=== PATIENT | female | born 1990 | race American Indian/Alaskan Native ===

== ENCOUNTER 2023-11-07 17:22 | Inpatient (IN) | payer MEDICAID ==
[2023-11-07] MEDS: Ondansetron 4 MG Tab.DIS PO ONE (18:55)
[2023-11-07] MEDS: LORazepam 0.5 MG Tab PO ONE (18:55)
[2023-11-07 19:06] LABS: BASOPHILS ABSOLUTE AUTO 0.08 K/uL (0.00-0.10); BASOPHILS PERCENT AUTO 0.8 % (0.1-1.3); HEMATOCRIT 35.1 % (34.3-46.0); HEMOGLOBIN 12.1 g/dL (11.2-15.5); IMMATURE GRAN PERCENT AUTO 0.2 % (0.0-0.7); LYMPHOCYTES ABSOLUTE AUTO 3.25 K/uL (0.8-3.3); LYMPHOCYTES PERCENT AUTO 32.1 % (11.4-47.7); MEAN CORPUSCULAR HEMOGLOBIN 30.9 pg (31.6-35.5); MEAN CORPUSCULAR HGB CONC 34.5 g/dL (31.6-35.5); MEAN CORPUSCULAR VOLUME 89.5 fL (81.4-99.0); MONOCYTES PERCENT AUTO 7.9 % (3.3-12.6); NEUTROPHILS ABSOLUTE AUTO 5.86 K/uL (1.0-7.6); PLATELET COUNT,PLT 313 K/uL (130-375); RED BLOOD CELL COUNT 3.92 M/uL (3.77-5.24); WHITE BLOOD CELL COUNT,WBC 10.1 K/uL (3.2-11.0)
[2023-11-07 19:13] LABS: IMMATURE GRAN ABSOLUTE AUTO 0.02 K/uL (0.00-0.23)
[2023-11-07 19:35] LABS: A/G RATIO 0.9 (1.2-2.2); ALANINE AMINOTRANSFERASE,ALT 21 U/L (12-78); ALBUMIN 2.6 g/dL (3.4-5.0); ALKALINE PHOSPHATASE 53 U/L (46-116); ASPARTATE AMNIOTRANSFERASE,AST 13 U/L (15-37); BILIRUBIN TOTAL 0.2 mg/dL (0.2-1.0); BLOOD UREA NITROGEN,BUN 7 mg/dL (7-18); CARBON DIOXIDE,CO2 22 mmol/L (21-32); CHLORIDE,CL 115 mmol/L (100-108); CREATININE 0.7 mg/dL (0.6-1.0); EST CRCL DRUG DOSING (CG) 97.79 mL/min; ESTIMATED GFR 116 mL/min (>60); GLUCOSE RANDOM 127 mg/dL (74-106); POTASSIUM,K 3.8 mmol/L (3.6-5.2); PROTEIN TOTAL,TP 5.4 g/dL (6.4-8.2); SODIUM,NA 146 mmol/L (140-148); TSH ULTRASENSITIVE 2.454 uIU/mL (0.358-3.740)
[2023-11-07 19:41] LABS: ANION GAP 12.8 mmol/L (5.0-14.0)
[2023-11-07 19:57] LABS: FOLIC ACID 9.5 ng/ml (8.6-58.9)
[2023-11-07 20:10] LABS: APPEARANCE,URINE CLEAR (CLEAR); BILIRUBIN,URINE NEGATIVE (NEGATIVE); COLOR,URINE YELLOW (YELLOW); GLUCOSE,URINE NEGATIVE (NEGATIVE); KETONES,URINE NEGATIVE (NEGATIVE); LEUKOCYTE ESTERASE,URINE SMALL (NEGATIVE); NITRITE,URINE POSITIVE (NEGATIVE); OCCULT BLOOD,URINE NEGATIVE (NEGATIVE); PROTEIN,URINE NEGATIVE (NEGATIVE); UROBILINOGEN,URINE 0.2 EU/dL (0.2-1.0)
[2023-11-07 20:15] LABS: AMPHETAMINES SCREEN, URINE PRESUMPTIVE POSITIVE (NEGATIVE); METHAMPHETAMINES SCREEN, URINE PRESUMPTIVE POSITIVE (NEGATIVE)
[2023-11-07 20:16] LABS: BARBITURATE SCREEN,URINE NEGATIVE (NEGATIVE); BENZODIAZEPINES SCREEN,URINE PRESUMPTIVE POSITIVE (NEGATIVE); METHADONE SCREEN, URINE NEGATIVE (NEGATIVE); OXYCODONE SCREEN,URINE NEGATIVE (NEGATIVE); PROPOXYPHENE SCREEN,URINE NEGATIVE (NEGATIVE); THC SCREEN,URINE 50 NG/ML PRESUMPTIVE POSITIVE (NEGATIVE)
[2023-11-07 20:25] LABS: AMORPHOUS SEDIMENT,URINE NOT SEEN; BACTERIA,URINE MANY; EPITHELIAL CELLS,URINE FEW; MUCUS,URINE FEW; RBC,URINE 0-5 (0-5)
[2023-11-07] MEDS: Sodium Chloride 0.9% 10 ML Syringe FLUSH PRN ×2 (21:14→21:59)
[2023-11-07] MEDS: Iopamidol 612 MG/ML 100 ML Bottle IV SCH (21:14)
[2023-11-07] MEDS: Sodium Chloride 0.9% 100 ML IV SCH (21:14)
[2023-11-07] MEDS: Nitrofurantoin Monohydrate/Macrocrystalline 100 MG Cap PO ONE (21:41)
[2023-11-07] MEDS: Sodium Chloride 0.9% 1,000 ML IV ONE (21:42)
[2023-11-07] MEDS: Ketorolac 30 MG/ML SDV IVPUSH ONE (21:58)
[2023-11-07] MEDS: Pantoprazole 40 MG Vial IVPUSH SCH (23:43)
[2023-11-07] MEDS ORDERED: oxyCODONE 5 MG Tab PO PRN (23:51)
[2023-11-07] MEDS ORDERED: Naloxone 0.4 MG/ML SDV IVPUSH PRN (23:51)
[2023-11-07] MEDS ORDERED: Albuterol 0.083% 2.5 MG/3 ML Neb Soln NEB PRN (23:51)
[2023-11-07] MEDS ORDERED: LORazepam 2 MG/ML SDV IV PRN (23:51)
[2023-11-07] MEDS ORDERED: Ondansetron 4 MG/2 ML SDV IV PRN (23:51)
[2023-11-07] MEDS ORDERED: Morphine 2 MG/ML SYRINGE IVPUSH PRN (23:51)
[2023-11-07] MEDS ORDERED: Albuterol/Ipratropium 3.0-0.5 MG/3 ML Neb Soln NEB PRN (23:51)
[2023-11-08] MEDS: cefTRIAXone 1 GM in Sodium Chloride 0.9% 50 ML IV ONE (00:37)
[2023-11-08] MEDS: Enoxaparin 40 MG/0.4 ML Syringe SUBCUT ONE (00:38)
[2023-11-08] MEDS: Nicotine 21 MG/24 Hr Patch TRDERM SCH (00:38)
[2023-11-08] MEDS: Ondansetron 4 MG Tab.DIS PO PRN (00:39)
[2023-11-08] MEDS: Melatonin 3 MG Tab PO PRN (00:39)
[2023-11-08] MEDS: Acetaminophen 325 MG Tab PO PRN (00:39)
[2023-11-08] MEDS: Ketorolac 30 MG/ML SDV IVPUSH PRN (03:59)
[2023-11-08 05:55] LABS: BASOPHILS ABSOLUTE AUTO 0.07 K/uL (0.00-0.10); BASOPHILS PERCENT AUTO 0.6 % (0.1-1.3); EOSINOPHILS ABSOLUTE AUTO 0.17 K/uL (0.00-0.40); EOSINOPHILS PERCENT AUTO 1.5 % (0.0-5.4); HEMATOCRIT 34.7 % (34.3-46.0); HEMOGLOBIN 11.9 g/dL (11.2-15.5); IMMATURE GRAN ABSOLUTE AUTO 0.03 K/uL (0.00-0.23); IMMATURE GRAN PERCENT AUTO 0.3 % (0.0-0.7); LYMPHOCYTES ABSOLUTE AUTO 3.72 K/uL (0.8-3.3); LYMPHOCYTES PERCENT AUTO 33.6 % (11.4-47.7); MEAN CORPUSCULAR HEMOGLOBIN 30.9 pg (31.6-35.5); MEAN CORPUSCULAR HGB CONC 34.3 g/dL (31.6-35.5); MEAN CORPUSCULAR VOLUME 90.1 fL (81.4-99.0); MONOCYTES ABSOLUTE AUTO 0.76 K/uL (0.20-0.90); MONOCYTES PERCENT AUTO 6.9 % (3.3-12.6); NEUTROPHILS ABSOLUTE AUTO 6.32 K/uL (1.0-7.6); NEUTROPHILS PERCENT AUTO 57.1 % (40.0-78.1); PLATELET COUNT,PLT 230 K/uL (130-375); RED BLOOD CELL COUNT 3.85 M/uL (3.77-5.24); WHITE BLOOD CELL COUNT,WBC 11.1 K/uL (3.2-11.0)
[2023-11-08 06:04] LABS: CALCIUM 7.8 mg/dL (8.5-10.1); CREATININE 0.5 mg/dL (0.6-1.0); EST CRCL DRUG DOSING (CG) 136.9 mL/min; POTASSIUM,K 4.6 mmol/L (3.6-5.2)
[2023-11-08 06:09] LABS: ANION GAP 12.6 mmol/L (5.0-14.0)
[2023-11-08] MEDS: Sodium Chloride 0.9% 1,000 ML IV SCH (08:40)
[2023-11-08] MEDS ORDERED: cefTRIAXone 1 GM in Sodium Chloride 0.9% 50 ML IV SCH (21:00)
[2023-11-08] MEDS ORDERED: Enoxaparin 40 MG/0.4 ML Syringe SUBCUT SCH (21:00)
== END 2023-11-08 13:28 | DRG 439 ==
LOC: JP.ED 17:22 → JP.MS 22:50
PROVIDERS: ADMIT Nurse Practitioner; ATTEND Hospitalist
DX: K85.20 Alcohol induced acute pancreatitis without necrosis or infection (principal); F11.93 Opioid use, unspecified with withdrawal; R44.0 Auditory hallucinations; F15.93 Other stimulant use, unspecified with withdrawal; N30.00 Acute cystitis without hematuria; R44.1 Visual hallucinations; F41.9 Anxiety disorder, unspecified; E86.0 Dehydration; F43.0 Acute stress reaction; F17.210 Nicotine dependence, cigarettes, uncomplicated; Z90.49 Acquired absence of other specified parts of digestive tract
CPT/HCPCS: 36415; 74177; 80048; 80053; 80305-QW; 80307; 81001; 81025; 82140; 82607; 82746; 82800; 83690; 83735; 84443; 85025; 86140; 87086; 87088; 87186; 96361; 96374; 99223; 99238; 99284; 99285-25; A9270-GY; J0696; J1650; J1885; J2470; J3490; J7030; Q0162; Q9967